=== PATIENT | male | born 1990 | race Caucasian/White ===

== ENCOUNTER 2017-02-23 09:06 | Emergency (ER) | payer SELFPAY ==
[~2017-02-23] VITALS: Ht 177.8 cm; Wt 75.0 kg
[2017-02-23] MEDS ORDERED: IBUPROFEN 600 MG TABLET PO ONE (09:30)
[2017-02-23 10:51] VITALS: BP 127/71
== END 2017-02-23 11:00 | disposition home or self-care (01) ==
LOC: EMS 09:09
DX: S93.401A Sprain of unspecified ligament of right ankle, initial encounter (principal); F17.210 Nicotine dependence, cigarettes, uncomplicated; F11.90 Opioid use, unspecified, uncomplicated; F15.90 Other stimulant use, unspecified, uncomplicated; X50.1XXA Overexertion from prolonged static or awkward postures, initial encounter; Y93.51 Activity, roller skating (inline) and skateboarding; Y92.9 Unspecified place or not applicable; Y99.9 Unspecified external cause status
CPT/HCPCS: 99284